=== PATIENT | male | born 1990 | race African-American/Black ===

== ENCOUNTER 2017-01-22 13:07 | Emergency (ER) | payer OTHER ==
[~2017-01-22] VITALS: Ht 177.8 cm; Wt 122.5 kg
--- NOTE | ~2017-01-22 | CR170 ---
[facility] A Service of [facility] RADIOLOGY TEXT RESULTS PATIENT: IVY SALES LOCATION: CFTX : [birth year] UNIT #: [id number] AGE: [address]: Cara Salmeron SEX: M ORDER DR: [id number] [facility] [address] [place], [place] [address] [id number] MR#: [id number] Acc #: [id number] NAME: IVY SALES : 1990 SEX: M STUDY DATE/TIME: 01/22/2017 13:46 UNIT: [facility]NM ROOM: STUDY DESCRIPTION: CR Knee 2 Views Rt Attending Physician: Cara Salmeron P.A.-C. Ordering Physician: Cara Salmeron P.A.-C. Primary Care Physician: Primary Care Physician No MEDICAL IMAGING REPORT This report is preliminary unless electronic signature is present EXAM Right knee 2 views HISTORY Knee pain and stiffness for 1 day, after pain while standing. FINDINGS Two views of the right knee demonstrate curvilinear subchondral lucency along the articular surface of the medial femoral condyle extending over AP and transverse dimensions of 1.6 cm and 1.2 cm, respectively, characteristic of avascular necrosis. No joint space narrowing. No effusion. Remainder of the bone alignment is normal. IMPRESSION 1. 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 2. No joint space narrowing or effusion. Dictated by... Jaxon Cid M.D. THIS IS AN ELECTRONICALLY VERIFIED REPORT Jaxon Cid M.D. at 01/22/2017 11:06 PM ALBINA/katlyn TD: 01/22/2017 22:46 JOB #: [id number] MEDICAL IMAGING REPORT Page 1 of 1 COPY
== END 2017-01-22 15:10 | disposition home or self-care (01) ==
LOC: CED 13:07 → CFTX 13:07
DX: M87.9 Osteonecrosis, unspecified (principal)
CPT/HCPCS: 73560; 99283

== ENCOUNTER 2017-02-06 12:26 | Emergency (ER) | payer OTHER ==
[~2017-02-06] VITALS: Ht 177.8 cm; Wt 122.5 kg
== END 2017-02-06 13:15 | disposition home or self-care (01) ==
LOC: CED 12:26 → CFTX 12:26
DX: S83.411A Sprain of medial collateral ligament of right knee, initial encounter (principal); W22.8XXA Striking against or struck by other objects, initial encounter; Y92.009 Unspecified place in unspecified non-institutional (private) residence as the place of occurrence of the external cause
CPT/HCPCS: 29505; 99283